=== PATIENT | male | born 1945 | race Caucasian/White ===

== ENCOUNTER 2017-04-16 09:21 | Emergency (ER) | payer OTHER ==
[~2017-04-16] VITALS: Ht 175.3 cm; Wt 96.8 kg
[2017-04-16 09:24] VITALS: Ht 175.3 cm; Wt 96.8 kg
[2017-04-16 09:52] LABS: BASOPHILS % 0.3 % (0.0-2.0); EOSINOPHILS # 0.1 10^3/ul (0.0-0.5); EOSINOPHILS % 0.4 % (0.0-7.0); HEMATOCRIT 41.2 % (42.0-52.0); HEMOGLOBIN 13.9 g/dl (14.0-18.0); LYMPHOCYTES # 2.2 10^3/ul (0.8-2.9); LYMPHOCYTES % 17.1 % (15.0-51.0); MEAN CORPUSCULAR HEMOGLOBIN 28.4 pg (29.0-33.0); MEAN CORPUSCULAR HGB CONC 33.7 g/dl (32.0-37.0); MEAN CORPUSCULAR VOLUME 84.1 fl (82.0-101.0); MONOCYTE # 0.9 10^3/ul (0.3-0.9); MONOCYTES % 6.7 % (0.0-11.0); NEUTROPHIL # 9.8 10^3/ul (1.6-7.5); NEUTROPHILS % 74.9 % (39.0-77.0); PLATELET COUNT 196 10^3/UL (140-415); RED CELL DISTRIBUTION WIDTH 13.7 % (11.5-14.5)
[2017-04-16 09:56] LABS: ADD SCAN DIFF NO
[2017-04-16 10:07] LABS: ANION GAP 20 (8-16); BLOOD UREA NITROGEN 15 mg/dl (7-20); CALCIUM 9.9 mg/dl (8.4-10.2); CARBON DIOXIDE 24 mmol/L (21-31); CHLORIDE 103 mmol/L (97-110); CREATININE 1.02 mg/dl (0.61-1.24); GLUCOSE 133 mg/dl (70-220); SODIUM 143 mmol/L (135-144)
--- NOTE | 2017-04-16 10:07 | RADRPT ---
PROCEDURE: XR Chest. CLINICAL INDICATION: Chest pain TECHNIQUE: AP view of the chest was performed. COMPARISON: None FINDINGS: Mild cardiomegaly and vascular congestion are present. No signs of pleural fluid or pneumothorax are seen. The osseous structures and soft tissues are unremarkable. IMPRESSION: Mild cardiomegaly and vascular congestion. RPTAT: QQ .Massiel Arcos MD, MD Date Time Electronically viewed and signed by .Massiel Arcos MD, MD on 04/16/2017 10:06 .F/
--- NOTE | 2017-04-16 10:09 | RADRPT ---
PROCEDURE: CT Brain without. CLINICAL INDICATION: Left-sided weakness. TECHNIQUE: A CT of the brain was performed on multidetector high-resolution CT scanner utilizing a xial sections from the skull base through the vertex without contrast. The scan was reviewed in sof t tissue brain and high frequency resolution bone algorithm windows. Images were reviewed on a high -resolution PACS workstation. One or more the following does reduction techniques were utilized: Aut omated exposure control, adjustment of the mA/ or kV according to patient's size, or use of iterativ e reconstruction technique. The exam CTDI = 44.46 mGy and the DLP = 720.23 mGy-cm. COMPARISON: Brain CT . FINDINGS: There is hypoattenuated area with associated loss of the right matter differentiation in the parieta l, temporal lobes and to a lesser extent in posterior frontal lobe consistent with acute/recent infa rct in right MCA distribution. There is small focal hyperdensity in the region of the right M1 segment of the middle cerebral arter y which may represent atherosclerotic calcification versus thrombus. The ventricles and sulci are mildly prominent indicative of volume loss. There is no intracranial he morrhage, mass effect or midline shift. No abnormal intra-axial or extra-axial fluid collections ar e seen. The vidales/white matter differentiation is preserved. There are mild scattered foci of hypoattenuation in the white matter, which are nonspecific in etiol ogy but likely reflect chronic small vessel ischemic changes. There are mild intracranial vascular calcifications consistent with atherosclerosis. The visualized paranasal sinuses demonstrate opacifi cation of the right sphenoid sinus with mucoperiosteal thickening. The mastoid air cells are essent ially clear. IMPRESSION: 1. Acute/recent infarct in right parietal, temporal and posterior frontal lobes likely in right MCA distribution. No gross hemorrhagic transformation. Small focal hyperdensity in the region of the ri ght M1 segment of the MCA which may represent atherosclerotic calcification versus thrombus. CTA can be obtained for further evaluation. 2. Mild intracranial atherosclerosis and chronic small vessel ischemic changes. 3. Mild generalized cerebral volume loss. 4. Opacified right sphenoid sinus. A call report was made and above findings were discussed and acknowledged by Dr. CHASE DIANA on 04/16/2017 10:00 AM . RPTAT: PP .Bruna Jackman MD, MD Date Time Electronically viewed and signed by .Bruna Jackman MD, MD on 04/16/2017 10:09 .N/
[2017-04-16 10:20] LABS: TROPONIN-I < 0.012 ng/ml (0.00-0.12)
[2017-04-16 10:33] LABS: INR 0.98
[2017-04-16] MEDS ORDERED: SOD CHLORIDE 0.9% 100 ML ONE (10:33)
[2017-04-16] MEDS ORDERED: IOHEXOL 100 ML ONE (10:33)
[2017-04-16 10:45] LABS: PARTIAL THROMBOPLASTIN TIME 27.7 Sec (25.0-35.0)
--- NOTE | 2017-04-16 11:47 | RADRPT ---
PROCEDURE: CTA head and neck CLINICAL INDICATION: CVA. Left-sided weakness. TECHNIQUE: The study was performed utilizing multidetector CT scanner. Direct thin section axial s ections were obtained through the head and neck after the uneventful administration of 100 cc of Iso jules 370 nonionic intravenous contrast material. Coronal and sagittal as well as maximal intensity p rojection reformations were obtained. 3-D images were made. The images were reviewed on a PACS work station. One or more the following does reduction techniques were utilized: Automated exposure contr ol, adjustment of themA/ or kV according to patient's size, or use of iterative reconstruction techn ique. The total CTDIvol is 66, 18.47, 1.65 mGy and the DLP is 777.31 mGy-cm. COMPARISON: Brain CT of the same day. FINDINGS: CTA NECK: The origins of the great vessels off the aortic arch are patent without significant stenosis. The c ommon carotid and internal carotid arteries are patent without significant stenosis by NASCET criter ia. Retropharyngeal course of bilateral internal carotid arteries are noted. Direct measurements of vessel diameters was made in reference to measurements of the distal internal carotid artery diamet er. The left vertebral artery is dominant. The vertebral arteries are also patent without high-grade st enosis. There is 1.4 cm hypodense nodule in the medial left thyroid lobe. CTA BRAIN: The internal carotid arteries are patent without significant stenosis. There is non-opacification in the distal M1 and proximal M2 segments of right middle cerebral artery consistent with a thrombus. There is reconstitution of flow in the superior M2 segment and signific ant narrowing and end to aeration of several distal right MCA branches. The proximal left middle ce rebral artery and bilateral anterior cerebral arteries are patent without significant stenosis. Ant erior communicating artery fenestration is noted, which is anatomical variation. The intracranial vertebral arteries, basilar artery, and posterior cerebral arteries are also unrema rkable without significant stenosis. No aneurysm or vascular malformation is identified. IMPRESSION: 1. Thrombus in the distal M1 and proximal M2 segments of right middle cerebral artery. There is rec onstitution of flow in the superior M2 segment and significant narrowing and attenuation of several distal right MCA branches. 2. Otherwise no significant stenosis in the remainder of major intracranial and neck arteries. 3. 1.4 cm hypodense nodule in the medial left thyroid lobe. Thyroid ultrasound can be obtained for further evaluation. A call report was made and above findings were discussed and acknowledged by Dr. CHASE DIANA on 04/16/2017 11:33 AM . RPTAT: PP .Bruna Jackman MD, MD Date Time Electronically viewed and signed by .Bruna Jackman MD, on 04/16/2017 11:47 .N/
[2017-04-16] MEDS ORDERED: ASPIRIN 300 MG SUPP PR ONE (12:00)
--- NOTE | 2017-04-16 12:19 | ERA ---
ER Documentation Chief Complaint Date/Time DATE: 04/16/17 TIME: 12:14 Chief Complaint facial droop, altered last known well time last night HPI This is a 71-year-old male who is brought to the emergency room by ambulance for evaluation of altered mental status and left-sided weakness and facial droop. According to the patient's son this patient was last seen normal last night around 10 PM. He states that he did not hear from his father today so he went to his father's house and found him laying on the couch. He did state he was altered and called 911. When I evaluated this patient he was unable to give me a detailed history secondary to his clinical deficits. The patient had obvious left-sided weakness and left facial droop. ROS All systems reviewed and are negative except as per history of present illness. Allergies Allergies: Coded Allergies: No Known Allergy (Unverified , 04/16/17) PMhx/Soc Medical and Surgical Hx: pt denies Surgical Hx Hx Cardiac Disorders: Yes (htn) Hx Miscellaneous Medical Probl: Yes (dm) Hx Alcohol Use: No Hx Substance Use: No Hx Tobacco Use: Yes Smoking Status: Current every day smoker Physical Exam Vitals Vital Signs Date Time Temp Pulse Resp B/P Pulse Ox O2 Delivery O2 Flow Rate FiO2 04/16/17 11:44 97.1 55 17 148/71 100 Nasal Cannula 2.0 04/16/17 09:30 Nasal Cannula 2 04/16/17 09:24 98.1 56 18 152/75 99 Physical Exam INITIAL VITAL SIGNS: Reviewed by me GENERAL: The patient is well developed and appropriate for usual state of health in no apparent distress HEENT: Pupils equal, round, and reactive to light. EOMI. There is no scleral icterus. NECK: C-spine is soft and supple, there is no meningismus. There is no cervical lymphadenopathy. LUNGS: Clear to auscultation bilaterally. There are no rales, wheezes or rhonchi. HEART: Regular rate and rhythm, no murmurs, clicks, rubs or gallops. ABDOMEN: Soft, non-tender, non-distended. There are bowel sounds in all four quadrants. No rebound or guarding. EXTREMITIES: There is no peripheral cyanosis or edema. No focal swelling or erythema. NEUROLOGICAL: Left-sided facial droop, left upper extremity 1 out of 5 strength , left lower extremity 2 out of 5 strength, patient does not have any neglect and is crossing midline. Slurred speech SKIN: There is no apparent rash or petechiae. HEME/LYMPHATIC: There is no evidence of excessive bruising or lymphedema. PSYCHIATRIC: The patient does not appear anxious or depressed. Result Diagram: 04/16/17 0935 04/16/17 0935 Results 24 hrs Laboratory Tests Test 04/16/17 09:33 04/16/17 09:35 Bedside Glucose 138mg/dL White Blood Count 13.010^3/ul Red Blood Count 4.9010^6/ul Hemoglobin 13.9g/dl Hematocrit 41.2% Mean Corpuscular Volume 84.1fl Mean Corpuscular Hemoglobin 28.4pg Mean Corpuscular Hemoglobin Concent 33.7g/dl Red Cell Distribution Width 13.7% Platelet Count 11291^3/UL Mean Platelet Volume 11.0fl Neutrophils % 74.9% Lymphocytes % 17.1% Monocytes % 6.7% Eosinophils % 0.4% Basophils % 0.3% Nucleated Red Blood Cells % 0.0/100WBC Neutrophils # 9.810^3/ul Lymphocytes # 2.210^3/ul Monocytes # 0.910^3/ul Eosinophils # 0.110^3/ul Basophils # 0.010^3/ul Nucleated Red Blood Cells # 0.010^3/ul Prothrombin Time 13.0Sec Prothrombin Time Ratio 1.0 INR International Normalized Ratio 0.98 Activated Partial Thromboplast Time 27.7Sec Sodium Level 143mmol/L Potassium Level 4.0mmol/L Chloride Level 103mmol/L Carbon Dioxide Level 24mmol/L Anion Gap 20 Blood Urea Nitrogen 15mg/dl Creatinine 1.02mg/dl Glucose Level 133mg/dl Calcium Level 9.9mg/dl Troponin I < 0.012ng/ml Current Medications Medications (Trade) Dose Ordered Sig/Krishna Route PRN Reason Start Time Stop Time Status Last Admin Dose Admin IV Flush 10 ml 10 ml STK-MED ONCE .ROUTE 04/16/17 10:33 04/16/17 10:34 DC Sodium Chloride 100 ml @ ud STK-MED ONCE .ROUTE 04/16/17 10:33 04/16/17 10:34 DC Iohexol (Omnipaque) 100 ml @ ud STK-MED ONCE .ROUTE 04/16/17 10:33 04/16/17 10:34 DC Aspirin (Aspirin) 300 mg ONCE ONCE SD 04/16/17 12:00 04/16/17 12:01 DC 04/16/17 12:10 Procedures/[facility] EKG: Rate/Rhythm: [Normal Sinus Rhythm] QRS, ST, T-waves: [No changes consistent w/ acute ischemia] Impression: [No evidence of ischemia or arrhythmia] Chest X-ray 1V Interpreted by me: Soft Tissue: No acute abnormalities Bones: No acute abnormalities Mediastinum/Cardiac Silhouette/Lungs: [No acute abnormalities] CT brain without: 1. Acute/recent infarct in right parietal, temporal and posterior frontal lobes likely in right MCA distribution. No gross hemorrhagic transformation. Small focal hyperdensity in the region of the right M1 segment of the MCA which may represent atherosclerotic calcification versus thrombus. CTA can be obtained for further evaluation. 2. Mild intracranial atherosclerosis and chronic small vessel ischemic changes. 3. Mild generalized cerebral volume loss. 4. Opacified right sphenoid sinus. CTA brain: 1. Thrombus in the distal M1 and proximal M2 segments of right middle cerebral artery. There is reconstitution of flow in the superior M2 segment and significant narrowing and attenuation of several distal right MCA branches. 2. Otherwise no significant stenosis in the remainder of major intracranial and neck arteries. 3. 1.4 cm hypodense nodule in the medial left thyroid lobe. Thyroid ultrasound can be obtained for further evaluation. This 71-year-old male presents to the emergency room for evaluation of altered mental status. When I evaluated this patient I did note a left sided facial droop and obvious left upper extremity and left lower externally weakness. This patient was last seen normal at 10 PM on April 15. This patient is well out of the window for TPA, and is also out of the window for any type of thrombectomy. I did obtain a CT which confirm my suspicion of right-sided MCA infarction. CT angiogram of the brain was obtained which does show a thrombus in the distal M1 and proximal M2 segments of the right middle cerebral artery. The patient did receive rectal aspirin in the emergency room. His son is at bedside at this time and has notified his other family members. This patient is a [place] patient and I have spoken to Dr. Red on the phone. The patient will be transferred to [facility] at this time. Confirmation #[id number]. Critical Care: Excluding all billable procedures Time: 52 minutes Treatments/Evaluations: Close monitoring and treatment of unstable vital signs, cardiorespiratory, and neurologic status, while maintaining tight balance of fluid, respiratory, and cardiac interventions. Departure Diagnosis: Primary Impression: Thrombosis of middle cerebral artery Additional Impression: CVA (cerebral vascular accident) Condition: Serious ADALGISA STONE DO Apr 16, 2017 12:18
[2017-04-16 14:50] VITALS: BP 156/79; PULSE 52; RESP 18; TEMP 98.1
== END 2017-04-16 15:19 | disposition short-term general hospital (02) ==
LOC: E/R 09:21
DX: I63.311 Cerebral infarction due to thrombosis of right middle cerebral artery (principal); I10 Essential (primary) hypertension; E11.9 Type 2 diabetes mellitus without complications; F17.210 Nicotine dependence, cigarettes, uncomplicated; R07.9 Chest pain, unspecified
CPT/HCPCS: 70450; 70496; 70498; 71010; 80048; 82962; 84484; 85025; 85610; 85730; 93005; Q9967; 36415

== ENCOUNTER 2017-12-18 11:45 | Emergency (ER) | END 2017-12-18 12:43 | disposition home or self-care (01) ==

== ENCOUNTER 2018-03-02 01:41 | Inpatient (IN) | END 2018-03-06 20:00 | DRG 694 ==